=== PATIENT | female | born 1950 | race Caucasian/White ===

== ENCOUNTER 2017-01-17 06:20 | Day surgery (SDC) | payer OTHER ==
--- NOTE | ~2017-01-17 | EGD ---
EGD REPORT [facility] [address] [address] NAME: MOIZ JONES : [birth year] [place]US : [place] [facility] [place]#: [id number] AGE: 66 ADM/REG DATE : 01/17/17 MR#: [id number] REPORT SERV DATE: 01/17/17 DICTATED BY: CHRIS LEVI DATE: 01/17/17 REPORT STATUS : Draft [facility]ANS[facility]IBED BY: [facility] DATE: 01/17/17 [facility] Patient Name: Moiz Jones Date of : 1950 Attending MD: CHRIS LEVI MD Procedure Date No Time: 01/17/2017 Procedure: Colonoscopy Indications: Screening for colorectal malignant neoplasm Referring MD: RYNE INGRAM JR. Medicines: Propofol per Anesthesia Complications: No immediate complications. Procedure: Pre-Anesthesia Assessment: - ASA Grade Assessment: II - A patient with mild systemic disease. - Airway Examination: [Airway Exam]. After I obtained informed consent, the scope was passed under direct vision. Throughout the procedure, the patient's blood pressure, pulse, and oxygen saturations were monitored continuously. The PCF [id number] was introduced through the anus and advanced to the terminal ileum. The colonoscopy was performed without difficulty. The patient tolerated the procedure well. The quality of the bowel preparation was excellent. Scope withdrawal time was 7 minutes. Findings: The terminal ileum appeared normal. Multiple small-mouthed diverticula were found in the sigmoid colon. The retroflexed view of the distal rectum and anal verge was normal and showed no anal or rectal abnormalities. The perianal and digital rectal examinations were normal. Impression: - The examined portion of the ileum was normal. - Diverticulosis in the sigmoid colon. Recommendation: - The patient will be observed post-procedure, until all discharge criteria are met. - Return to previous diet today. - Continue present medications. - Repeat colonoscopy in 10 years for screening purposes. - The findings and recommendations were discussed with the patient and their spouse. - After the procedure, if you experience any pain in abdomen or chest,shortness of breath,fever,chills,blood in stool,rectal bleeding,vomiting of any EGD REPORT [address] [address] NAME: MOIZ JONES : [birth year] STATUS : [place] [facility] [place] PAT#: [id number] AGE: 66 ADM/REG DATE : 01/17/17 MR#: [id number] REPORT SERV DATE: 01/17/17 DICTATED BY: CHRIS LEVI. DATE: 01/17/17 REPORT STATUS : Draft TRANSCRIBED BY: [employer] DATE: 01/17/17 material,nausea,black stools or weakness or dizziness, GO TO THE EMERGENCY IMMEDIATELY!!!!!!!!! Procedure Code(s): --- Professional --- 07526, Colonoscopy, flexible, proximal to splenic flexure; diagnostic, with or without collection of specimen(s) by brushing or washing, with or without colon decompression (separate procedure) Diagnosis Code(s): --- Professional --- K57.30, Diverticulosis of large intestine without perforation or abscess without bleeding Z12.11, Encounter for screening for malignant neoplasm of colon CPT copyright 2013 [employer]. All rights reserved. The codes documented in this report are preliminary and upon superannuation clerk review may be revised to meet current compliance requirements. Chris Levi MD CHRIS LEVI MD 01/17/2017 8:48 AM This report has been signed electronically. Number of Addenda: 0 Note Initiated On: 01/17/2017 6:58 AM [address] [address]
[~2017-01-17 06:20] MED LIST: AMB5 PO; B COMPLETE PO; CELEXA40 MG PO; PRAVAC PO; VITAMIN D31000 UNIT PO
== END 2017-01-17 23:59 | disposition home health service (06) ==
LOC: DMU 06:20
PROVIDERS: Internal Medicine Gastroenterology
PROC: 0DJD8ZZ Inspection of Lower Intestinal Tract, Via Natural or Artificial Opening Endoscopic (ICD-10-PCS; principal; 2017-01-17 08:00)
DX: Z12.11 Encounter for screening for malignant neoplasm of colon (principal); K57.30 Diverticulosis of large intestine without perforation or abscess without bleeding; E78.00 Pure hypercholesterolemia, unspecified; E78.5 Hyperlipidemia, unspecified; Z98.890 Other specified postprocedural states